=== PATIENT | male | born 1945 | race Caucasian/White ===

== ENCOUNTER 2021-04-28 14:58 | Emergency (ER) | payer OTHER ==
[~2021-04-28 14:58] MED LIST: COLACE 100MG C100 MG PO; ECOTRIN81 MG PO; MESTINON60 MG PO; NORVASC 5 MG TAB5 MG PO; ONE DAILY MEN'1 EACH PO
== END 2021-04-28 18:30 | disposition home or self-care (01) ==
LOC: ER1 14:58
DX: Z23 Encounter for immunization (principal); U07.1 COVID-19
CPT/HCPCS: 99283; M0243